=== PATIENT | female | born 1995 | race Caucasian/White ===

== ENCOUNTER 2025-03-13 08:12 | Emergency (ER) | payer OTHER, SELFPAY ==
[2025-03-13 08:18] VITALS: BP 120/80; PULSE 72; RESP 16; TEMP 36.6; O2SAT 99
--- NOTE | 2025-03-13 08:36 | ED.EAR ---
HPI - Ear Problem General Chief complaint: Eye Problems Stated complaint: ears/left eye lid Time Seen by Provider: 03/13/25 08:28 Source: patient Mode of arrival: ambulatory Limitations: no limitations History of Present Illness HPI Narrative: Patient presents today complaining of swelling to the left upper eyelid x1 week without drainage or vision changes. Has been using warm compresses without relief. She also complains of a 3 week history of bilateral ear itching with pain at night, only on the side in which she is sleeping. No OTC treatment for the ears prior to arrival. Related Data Allergies Allergy/AdvReac Type Severity Reaction Status Date / Time No Known Allergies Allergy Verified 03/13/25 08:18 PMFSH Comments At time of signature, I have reviewed and agree with nursing past medical, surgical, social and family history unless otherwise noted. Please see nursing chart for further information. There is no relevant family history pertinent to the presenting complaint Exam Narrative: GENERAL: Well-appearing, well-nourished, and in no acute distress. HEAD: Normocephalic, atraumatic. EYES: EOMI. PERRL. Conjunctivae normal bilaterally. Right eye normal. Left eye: Mild swelling of the upper eyelid with tiny pustule at the lashline. No active drainage. Mildly tender to palpation. ENT: Mucous membranes pink and moist. Nares clear. No rhinorrhea. TMs with mild serous effusions bilaterally without evidence of bacterial infection. Canals normal bilaterally. NECK: Normal AROM. CHEST: No respiratory distress. EXTREMITIES: Normal range of motion. No edema. SKIN: Warm, dry, no rash. Capillary refill normal. Normal skin turgor. NEURO: No focal deficits. Alert and oriented x3. Gait steady. PSYCH: Normal affect. No signs of depression or anxiety. Course Course Level of Care: Express Care Visit Vital Signs Vital signs: Vital Signs Temperature 97.9 F 03/13/25 08:18 Pulse Rate 72 03/13/25 08:18 Respiratory Rate 16 03/13/25 08:18 Blood Pressure 120/80 03/13/25 08:18 Pulse Oximetry 99 03/13/25 08:18 Oxygen Delivery Room Air 03/13/25 08:18 Temperature 97.9 F 03/13/25 08:18 Pulse Rate 72 03/13/25 08:18 Respiratory Rate 16 03/13/25 08:18 Blood Pressure 120/80 03/13/25 08:18 Pulse Oximetry 99 03/13/25 08:18 Oxygen Delivery Room Air 03/13/25 08:18 Reviewed Medical Decision Making MDM Narrative Medical decision making narrative: Patient presents today complaining of swelling to the left upper eyelid x1 week without drainage or vision changes. Has been using warm compresses without relief. She also complains of a 3 week history of bilateral ear itching with pain at night, only on the side in which she is sleeping. No OTC treatment for the ears prior to arrival. Upon exam, in the left eye, Mild swelling of the upper eyelid with tiny pustule at the lashline. No active drainage. Mildly tender to palpation. In the ears, TMs with mild serous effusions bilaterally without evidence of bacterial infection. Canals normal bilaterally. Patient has been instructed to continue warm compresses on the eye. She will be prescribed some Polytrim in case there is a bacterial component to the stye. She has also been instructed to start some Flonase for her serous effusions as well as starting some Zyrtec for itching in the ears. Patient agrees with plan. Vital signs stable. Anticipatory guidance given. Differential Diagnosis Differential Diagnosis: Stye, blepharitis, otitis media, otitis externa, serous otitis Vital Signs Vital Signs: Vital Signs Temperature 97.9 F 03/13/25 08:18 Pulse Rate 72 03/13/25 08:18 Respiratory Rate 16 03/13/25 08:18 Blood Pressure 120/80 03/13/25 08:18 Pulse Oximetry 99 03/13/25 08:18 Oxygen Delivery Room Air 03/13/25 08:18 Temperature 97.9 F 03/13/25 08:18 Pulse Rate 72 03/13/25 08:18 Respiratory Rate 16 03/13/25 08:18 Blood Pressure 120/80 03/13/25 08:18 Pulse Oximetry 99 03/13/25 08:18 Oxygen Delivery Room Air 03/13/25 08:18 Critical Care Time Critical Care Time Critical Care Time: No Discharge Plan Discharge Clinical Impression: Hordeolum, Acute serous otitis media, bilateral Patient Disposition: Home Condition: Stable Instructions: Stye (ED), Fluid In The Ear (Serous Otitis Media) (ED) Additional Instructions: Start the eyedrops in use as directed for the stye. Continue warm compresses to help facilitate drainage. Follow-up with an eye doctor in 3-4 days if symptoms are not improving. Start some Flonase to help facilitate drainage from your middle ears. You may also want to try some Zyrtec to help with the itching. Follow-up with your PCP next week if symptoms persist. Patient Language: [place] Citizen Prescriptions: New polymyxin B sulf-trimethoprim 10,000 unit- 1 mg/mL drops 1 drp LEFT EYE QID 7 Days Qty: 10 0RF Follow-up/Referrals: PHYSICIAN,[employer] [Primary Care Provider, Internal Medicine] Time of Disposition: 08:44
== END 2025-03-13 08:49 | disposition home or self-care (01) ==
PROVIDERS: Emergency Provider Nurse Practitioner
DX: H00.014 Hordeolum externum left upper eyelid (principal); H65.03 Acute serous otitis media, bilateral
CPT/HCPCS: 99203; G0463